=== PATIENT | male | born 1940 | race Caucasian/White ===

== ENCOUNTER 2018-05-30 10:53 | Inpatient (IN) | payer MEDICARE, OTHER ==
[~2018-05-30] VITALS: Ht 170.2 cm; Wt 82.0 kg
[2018-05-30] VITALS (13 sets, daily range): BP systolic 153–172; BP diastolic 56–105
[2018-05-30 11:34] LABS: CLARITY,URINE CLEAR (Clear); COLOR,URINE YELLOW (Yellow); GLUCOSE, URINE NEGATIVE (Neg); KETONES,URINE NEGATIVE (Neg); LEUKOCYTE ESTERASE ,URINE NEGATIVE (Neg); NITRITES, URINE NEGATIVE (Neg); OCCULT BLOOD,URINE LARGE (Neg); PROTEIN,URINE 100 mg/dl (Neg); UROBILINOGEN,URINE 0.2 E.U/dL (0.2-1.0)
[2018-05-30] MEDS ORDERED: morphine 4 MG/ML inj SYRINge IV ONE ×2 (11:35→13:05)
[2018-05-30] MEDS ORDERED: ondansetron/PF 4mg/2ml inj IV ONE (11:35)
[2018-05-30] MEDS ORDERED: normal saline 1000ml 1,000 ML IV ONE ×2 (11:35→19:39)
[2018-05-30 11:37] LABS: UA COLLECTION TYPE CLN CATCH MIDSTREAM
[2018-05-30 11:48] LABS: BACTERIA,URINE FEW /HPF (Neg); RBC,URINE 20-50 /HPF (0-2); SQUAMOUS EPITHELIAL CELL,UR NONE SEEN /LPF (FEW); WBC,URINE 0-4 /HPF (0-4)
[2018-05-30 11:49] LABS: HYALINE CASTS 0-3 /LPF (NEGATIVE); MUCUS STRANDS FEW /LPF (Neg)
[2018-05-30 11:58] LABS: PROTHROMBIN TIME 10.8 SECONDS (9.0-12.0)
[2018-05-30] MEDS ORDERED: ALBU8HFA PO (12:00)
[2018-05-30] MEDS ORDERED: DICY10CA88 PO (12:00)
[2018-05-30] MEDS ORDERED: HYDR-3686 PO (12:00)
[2018-05-30] MEDS ORDERED: FLUTICASONE PROPIONATE (12:00)
[2018-05-30] MEDS ORDERED: TRAZ-219 PO (12:00)
[2018-05-30] MEDS ORDERED: PRED10DR LEFTEYE (12:00)
[2018-05-30] MEDS ORDERED: LISI40TA4 PO (12:00)
[2018-05-30] MEDS ORDERED: MIRT30TA8 PO (12:00)
[2018-05-30] MEDS ORDERED: METOPROLOL PO (12:00)
[2018-05-30] MEDS ORDERED: TAMS0.4C32 PO (12:00)
[2018-05-30 12:05] LABS: ALANINE AMINOTRANSFERASE 22 U/L (12-78); ALBUMIN 4.2 G/DL (3.4-5.0); ALKALINE PHOSPHATASE 47 IU/L (46-116); ANION GAP 9 (8-16); ASPARTATE AMINO TRANSFERASE 18 U/L (10-37); BILIRUBIN,TOTAL 0.5 MG/DL (0.1-1.0); BLOOD UREA NITROGEN 11 MG/DL (7-18); BUN/CREATININE RATIO 6.2 (5.4-32.0); CALCIUM 9.6 MG/DL (8.5-10.1); CHLORIDE 103 MMOL/L (99-107); CREATININE 1.78 MG/DL (0.60-1.10); GLUCOSE 155 MG/DL (70-104); POTASSIUM 3.8 MMOL/L (3.5-5.1); SODIUM 139 MMOL/L (135-145); TOTAL CARBON DIOXIDE 27.2 MMOL/L (24-32); TOTAL PROTEIN 8.3 G/DL (6.4-8.2); eGFR 37 ML/MIN
[2018-05-30 12:14] LABS: HEMOGLOBIN 11.4 g/dl (14.0-17.9); MEAN CORPUSCULAR HEMOGLOBIN 30.1 PG (27.0-31.0); MEAN CORPUSCULAR HGB CONC 33.7 % (33.0-36.5); MEAN CORPUSCULAR VOLUME 89.4 FL (78-98); MEAN PLATELET VOLUME 11.5 FL (7.4-10.4); RED CELL DISTRIBUTION WIDTH 16.8 % (11.5-14.5); WHITE BLOOD COUNT 9.8 X10'3 (4.5-11.0)
[2018-05-30 12:19] LABS: AMYLASE 132 U/L (25-115); LIPASE 405 U/L (73-393); TROPONIN I < 0.04 NG/ML (0.0-0.05)
[2018-05-30 12:55] LABS: PLATELET COUNT 20 X10'3 (140-440)
[2018-05-30 13:02] LABS: TOTAL CELLS COUNTED 100
[2018-05-30 13:06] LABS: ANISOCYTOSIS 2+; PLATELET ESTIMATE DECREASED
[2018-05-30 13:08] LABS: LARGE PLATELETS FEW
[2018-05-30 13:11] LABS: POLYCHROMASIA FEW
[2018-05-30] MEDS ORDERED: iohexol 300 MG/1 ML 50ml polymer ONE (15:38)
[2018-05-30] MEDS ORDERED: potassium Cl 40MEQ/NS 500ml 500 ML IV PRN ×2 (15:40)
[2018-05-30] MEDS ORDERED: magnesium 4gm in 100ml NS 100 ML IV PRN (15:40)
[2018-05-30] MEDS ORDERED: magnesium Cl slow-release 64mg tablet PO PRN (15:40)
[2018-05-30] MEDS ORDERED: metoclopramide 5 mg/ml inj IV PRN (15:40)
[2018-05-30] MEDS ORDERED: magnesium 1gm/100ml D5W IVPB 100 ML IV PRN (15:40)
[2018-05-30] MEDS ORDERED: morphine 2 MG/ML inj. syringe IV PRN (15:40)
[2018-05-30] MEDS ORDERED: ondansetron/PF 4mg/2ml inj IV PRN ×2 (15:40→19:40)
[2018-05-30] MEDS ORDERED: potassium Cl 20 mEq SR tablet PO PRN ×2 (15:40)
[2018-05-30 17:06] LABS: BASOPHILS % (AUTO) 0.2 % (0-1); EOSINOPHILS # (AUTO) 0.1 X10'3 (0-0.9); EOSINOPHILS % (AUTO) 1.2 % (0-6); LYMPHOCYTES % (AUTO) 13.5 % (21-51); MEAN CORPUSCULAR HEMOGLOBIN 30.5 PG (27.0-31.0); MEAN CORPUSCULAR HGB CONC 33.9 % (33.0-36.5); MEAN CORPUSCULAR VOLUME 89.9 FL (78-98); MEAN PLATELET VOLUME 10.7 FL (7.4-10.4); MONOCYTES # (AUTO) 0.9 X10'3 (0-0.9); MONOCYTES % (AUTO) 12.1 % (2-12); NEUTROPHILS # (AUTO) 5.2 X10'3 (1.8-7.7); PRE OP HEMATOCRIT 30.2 % (42.0-52.0); RED BLOOD COUNT 3.36 X10'6 (4.70-6.10); RED CELL DISTRIBUTION WIDTH 17.1 % (11.5-14.5)
[2018-05-30 17:23] LABS: PRE OP PLATELET COUNT 17 X10'3 (140-440)
[2018-05-30 17:24] LABS: PRE OP HEMOGLOBIN 10.2 g/dL (14.0-17.9)
[2018-05-30] MEDS ORDERED: methylPREDNISolone sod succ 125mg/2ml vial IV ONE (18:30)
[2018-05-30] MEDS ORDERED: fentaNYL/PF 50MCG/1 ML 2ML syringe ONE (19:02)
[2018-05-30] MEDS ORDERED: propofol inj 20 ML IV ONE (19:03)
[2018-05-30] MEDS ORDERED: LIDOcaine 2% (20mg/ml) 5ml vial ONE (19:03)
[2018-05-30] MEDS ORDERED: sevoflurane 250ml liquid IH ONE (19:06)
[2018-05-30] MEDS ORDERED: succinylcholine 20mg/ml inj IV ONE (19:33)
[2018-05-30] MEDS ORDERED: ondansetron/PF 4mg/2ml inj ONE (19:33)
[2018-05-30] MEDS ORDERED: HYDROmorphone 1 mg/ml syringe IV PRN (19:40)
[2018-05-30] MEDS ORDERED: morphine 4 MG/ML inj SYRINge IV PRN (19:40)
[2018-05-31 00:34] VITALS: BP 154/70
[2018-05-31] MEDS: morphine 2 MG/ML inj. syringe IV PRN ×3 (01:54→13:23)
[2018-05-31 03:30] VITALS: BP 142/83
[2018-05-31] MEDS: sodium chloride 0.45% 1,000 ML IV SCH ×3 (03:48→23:51)
[2018-05-31 04:39] LABS: HEMATOCRIT 27.3 % (42.0-52.0); HEMOGLOBIN 9.1 g/dl (14.0-17.9); MEAN CORPUSCULAR HEMOGLOBIN 29.9 PG (27.0-31.0); MEAN CORPUSCULAR HGB CONC 33.4 % (33.0-36.5); MEAN CORPUSCULAR VOLUME 89.6 FL (78-98); MEAN PLATELET VOLUME 9.2 FL (7.4-10.4); RED BLOOD COUNT 3.05 X10'6 (4.70-6.10); RED CELL DISTRIBUTION WIDTH 17.5 % (11.5-14.5); WHITE BLOOD COUNT 9.4 X10'3 (4.5-11.0)
[2018-05-31 04:57] LABS: PLATELET COUNT 44 X10'3 (140-440)
[2018-05-31 05:04] LABS: ALBUMIN 3.2 G/DL (3.4-5.0); ANION GAP 8 (8-16); BLOOD UREA NITROGEN 9 MG/DL (7-18); BUN/CREATININE RATIO 4.9 (5.4-32.0); CALCIUM 8.5 MG/DL (8.5-10.1); CHLORIDE 107 MMOL/L (99-107); CREATININE 1.83 MG/DL (0.60-1.10); GLUCOSE 104 MG/DL (70-104); POTASSIUM 4.1 MMOL/L (3.5-5.1); SODIUM 140 MMOL/L (135-145); TOTAL CARBON DIOXIDE 25.1 MMOL/L (24-32); eGFR 36 ML/MIN
[2018-05-31 05:06] LABS: PLATELET ESTIMATE DECREASED; TOTAL CELLS COUNTED 100
[2018-05-31 05:07] LABS: ANISOCYTOSIS 1+; POLYCHROMASIA FEW
[2018-05-31 07:33] VITALS: BP 166/51
[2018-05-31] MEDS: K and/or MAG REPLACEMENT MC SCH (08:00)
[2018-05-31] MEDS ORDERED: albuterol 2.5 MG/3 ML nebule NEB PRN (10:35)
[2018-05-31] MEDS: metoprolol succinate 25mg (24-HOUR) SR. Tablet PO SCH (11:13)
[2018-05-31] MEDS: lisinopril 20mg tablet PO SCH (11:13)
[2018-05-31] MEDS: tamsulosin 0.4mg capsule PO SCH (11:13)
[2018-05-31] MEDS: budesonide 0.5mg/2ml UD nebule IH SCH ×2 (11:20→20:17)
[2018-05-31 11:33] VITALS: BP 165/68
[2018-05-31 14:49] LABS: LIPASE 154 U/L (73-393)
[2018-05-31] MEDS: predniSONE 20 mg tablet PO SCH (15:41)
[2018-05-31] MEDS: prednisoLONE acetate 1% ophth susp 5ml LEFTEYE SCH ×2 (16:27→23:50)
[2018-05-31] MEDS: traMADol 50MG tablet PO PRN (17:42)
[2018-05-31 18:00] VITALS: BP 158/70
[2018-05-31] MEDS ORDERED: opium/belladonna alkaloids No. 15A 30mg rectal suppository RC PRN (18:20)
[2018-05-31] MEDS: phenazopyridine 100mg tablet PO SCH (19:39)
[2018-05-31] MEDS: traZODone 50mg tablet PO SCH (20:42)
[2018-05-31] MEDS: mirtazapine 15mg tablet PO SCH (20:42)
[2018-06-01] VITALS: BP 162/89
[2018-06-01 05:15] LABS: ALBUMIN 3.5 G/DL (3.4-5.0); ANION GAP 9 (8-16); BLOOD UREA NITROGEN 15 MG/DL (7-18); BUN/CREATININE RATIO 10.2 (5.4-32.0); CALCIUM 8.5 MG/DL (8.5-10.1); CHLORIDE 106 MMOL/L (99-107); CREATININE 1.47 MG/DL (0.60-1.10); GLUCOSE 123 MG/DL (70-104); MAGNESIUM 1.9 MG/DL (1.5-2.4); POTASSIUM 4.1 MMOL/L (3.5-5.1); SODIUM 141 MMOL/L (135-145); TOTAL CARBON DIOXIDE 26.5 MMOL/L (24-32); eGFR 47 ML/MIN
[2018-06-01 05:50] LABS: BASOPHILS # (AUTO) 0.1 X10'3 (0-0.2); BASOPHILS % (AUTO) 1.3 % (0-1); EOSINOPHILS % (AUTO) 0.1 % (0-6); HEMATOCRIT 27.5 % (42.0-52.0); HEMOGLOBIN 9.6 g/dl (14.0-17.9); LYMPHOCYTES % (AUTO) 28.2 % (21-51); MEAN CORPUSCULAR HEMOGLOBIN 31.5 PG (27.0-31.0); MEAN CORPUSCULAR HGB CONC 34.9 % (33.0-36.5); MEAN CORPUSCULAR VOLUME 90.4 FL (78-98); MEAN PLATELET VOLUME 9.4 FL (7.4-10.4); MONOCYTES # (AUTO) 1.8 X10'3 (0-0.9); MONOCYTES % (AUTO) 24.7 % (2-12); NEUTROPHILS # (AUTO) 3.3 X10'3 (1.8-7.7); NEUTROPHILS % (AUTO) 45.7 % (42-75); RED BLOOD COUNT 3.05 X10'6 (4.70-6.10); RED CELL DISTRIBUTION WIDTH 15.8 % (11.5-14.5); WHITE BLOOD COUNT 7.2 X10'3 (4.5-11.0)
[2018-06-01 06:38] LABS: ANISOCYTOSIS 1+; LARGE PLATELETS FEW; PLATELET ESTIMATE DECREASED
[2018-06-01 06:39] LABS: PLATELET COUNT 36 X10'3 (140-440)
[2018-06-01 07:00] VITALS: BP 181/84
[2018-06-01] MEDS: traMADol 50MG tablet PO PRN ×2 (07:16→17:31)
[2018-06-01] MEDS: predniSONE 20 mg tablet PO SCH (07:16)
[2018-06-01] MEDS: tamsulosin 0.4mg capsule PO SCH (07:16)
[2018-06-01] MEDS: metoprolol succinate 25mg (24-HOUR) SR. Tablet PO SCH (07:17)
[2018-06-01] MEDS: lisinopril 20mg tablet PO SCH (07:17)
[2018-06-01] MEDS: phenazopyridine 100mg tablet PO SCH ×3 (07:17→18:14)
[2018-06-01] MEDS: prednisoLONE acetate 1% ophth susp 5ml LEFTEYE SCH ×3 (07:17→23:33)
[2018-06-01] MEDS: budesonide 0.5mg/2ml UD nebule IH SCH (07:29)
[2018-06-01] MEDS ORDERED: phenazopyridine 100mg tablet PO SCH (08:00)
[2018-06-01] MEDS: K and/or MAG REPLACEMENT MC SCH (08:00)
[2018-06-01] MEDS: sodium chloride 0.45% 1,000 ML IV SCH ×2 (09:28→17:29)
[2018-06-01 11:00] VITALS: BP 174/77
[2018-06-01] MEDS: morphine 2 MG/ML inj. syringe IV PRN (12:26)
[2018-06-01] MEDS: pantoprazole 40mg Tablet.DR PO SCH (13:59)
[2018-06-01 17:19] LABS: ALANINE AMINOTRANSFERASE 16 U/L (12-78); ALBUMIN 3.4 G/DL (3.4-5.0); ALBUMIN/GLOBULIN RATIO 0.9 (1.1-1.5); ALKALINE PHOSPHATASE 43 IU/L (46-116); ASPARTATE AMINO TRANSFERASE 29 U/L (10-37); BILIRUBIN,DIRECT 0.1 MG/DL (0-0.3); BILIRUBIN,TOTAL 0.5 MG/DL (0.1-1.0); LIPASE 289 U/L (73-393)
[2018-06-01 18:00] VITALS: BP 158/53
[2018-06-01] MEDS: traZODone 50mg tablet PO SCH (20:21)
[2018-06-01] MEDS: docusate sod 100mg capsule PO SCH (20:21)
[2018-06-01] MEDS: mirtazapine 15mg tablet PO SCH (20:26)
[2018-06-01] MEDS: BUDESONIDE 0.25 MG/2 ML AMPUL.NEB IH SCH (20:43)
[2018-06-02] VITALS: BP 154/58
[2018-06-02] MEDS: sodium chloride 0.45% 1,000 ML IV SCH ×2 (03:20→12:58)
[2018-06-02 05:28] LABS: ANION GAP 6 (8-16); BLOOD UREA NITROGEN 24 MG/DL (7-18); BUN/CREATININE RATIO 18.2 (5.4-32.0); CALCIUM 8.1 MG/DL (8.5-10.1); CHLORIDE 106 MMOL/L (99-107); CREATININE 1.32 MG/DL (0.60-1.10); GLUCOSE 97 MG/DL (70-104); LIPASE 115 U/L (73-393); MAGNESIUM 1.9 MG/DL (1.5-2.4); SODIUM 139 MMOL/L (135-145); TOTAL CARBON DIOXIDE 26.6 MMOL/L (24-32); eGFR 53 ML/MIN
[2018-06-02 05:29] LABS: HEMATOCRIT 26.8 % (42.0-52.0); HEMOGLOBIN 9.3 g/dl (14.0-17.9); MEAN CORPUSCULAR HEMOGLOBIN 30.8 PG (27.0-31.0); MEAN CORPUSCULAR HGB CONC 34.5 % (33.0-36.5); MEAN CORPUSCULAR VOLUME 89.1 FL (78-98); MEAN PLATELET VOLUME 9.8 FL (7.4-10.4); RED BLOOD COUNT 3.01 X10'6 (4.70-6.10); RED CELL DISTRIBUTION WIDTH 17.3 % (11.5-14.5); WHITE BLOOD COUNT 8.9 X10'3 (4.5-11.0)
[2018-06-02 05:33] LABS: PLATELET COUNT 33 X10'3 (140-440)
[2018-06-02 07:00] VITALS: BP 162/81
[2018-06-02] MEDS: prednisoLONE acetate 1% ophth susp 5ml LEFTEYE SCH ×2 (07:28→16:31)
[2018-06-02] MEDS: metoprolol succinate 25mg (24-HOUR) SR. Tablet PO SCH (07:28)
[2018-06-02] MEDS: phenazopyridine 100mg tablet PO SCH ×2 (07:29→12:46)
[2018-06-02] MEDS: docusate sod 100mg capsule PO SCH (07:29)
[2018-06-02] MEDS: pantoprazole 40mg Tablet.DR PO SCH (07:29)
[2018-06-02] MEDS: tamsulosin 0.4mg capsule PO SCH (07:29)
[2018-06-02] MEDS: lisinopril 20mg tablet PO SCH (07:29)
[2018-06-02] MEDS: predniSONE 20 mg tablet PO SCH (07:29)
[2018-06-02] MEDS ORDERED: pantoprazole 40mg Tablet.DR PO SCH (07:30)
[2018-06-02] MEDS: BUDESONIDE 0.25 MG/2 ML AMPUL.NEB IH SCH (07:56)
[2018-06-02] MEDS: K and/or MAG REPLACEMENT MC SCH (08:00)
[2018-06-02 08:17] LABS: PLATELET ESTIMATE DECREASED; TOTAL CELLS COUNTED 100
[2018-06-02 11:57] VITALS: BP 197/69
[2018-06-02] MEDS ORDERED: metoprolol succinate 25mg (24-HOUR) SR. Tablet PO SCH (13:50)
[2018-06-02] MEDS ORDERED: metoprolol succinate 25mg (24-HOUR) SR. Tablet PO ONE (14:00)
[2018-06-02] MEDS ORDERED: TRAM50TA2 PO ×3 (15:03→15:14)
[2018-06-02] MEDS ORDERED: METO-395 PO (15:04)
[2018-06-03] MEDS ORDERED: metoprolol succinate 25mg (24-HOUR) SR. Tablet PO SCH (08:00)
== END 2018-06-02 18:21 | disposition home or self-care (01) | DRG 694 ==
LOC: ER 10:55 → ED HOLD 11:53 → SUR 3N 19:26 → PAS IN 19:41 → SUR 3N 19:58
PROVIDERS: ADMIT Internal Medicine; ATTEND Internal Medicine
PROC: 0T778DZ Dilation of Left Ureter with Intraluminal Device, Via Natural or Artificial Opening Endoscopic (ICD-10-PCS; 2018-05-30)
PROC: 30233R1 Transfusion of Nonautologous Platelets into Peripheral Vein, Percutaneous Approach (ICD-10-PCS; 2018-05-30)
PROC: BT1F1ZZ Fluoroscopy of Left Kidney, Ureter and Bladder using Low Osmolar Contrast (ICD-10-PCS; principal; 2018-05-30 19:06)
DX: N13.2 Hydronephrosis with renal and ureteral calculous obstruction (principal); K80.20 Calculus of gallbladder without cholecystitis without obstruction; F31.9 Bipolar disorder, unspecified; F43.10 Post-traumatic stress disorder, unspecified; H54.8 Legal blindness, as defined in USA; D69.6 Thrombocytopenia, unspecified; N17.9 Acute kidney failure, unspecified; I12.9 Hypertensive chronic kidney disease with stage 1 through stage 4 chronic kidney disease, or unspecified chronic kidney disease; N18.9 Chronic kidney disease, unspecified; D64.9 Anemia, unspecified; J45.909 Unspecified asthma, uncomplicated; R31.9 Hematuria, unspecified; F12.90 Cannabis use, unspecified, uncomplicated; K59.00 Constipation, unspecified; N40.0 Benign prostatic hyperplasia without lower urinary tract symptoms; Z85.6 Personal history of leukemia; Z88.5 Allergy status to narcotic agent; Z79.899 Other long term (current) drug therapy
CPT/HCPCS: 36415; 71045; 74176; 76000; 76700; 80048; 80053; 80076; 81001; 82150; 83605; 83690; 83735; 84484; 85025; 85610; 86022; 86885; 86900; 86901; 87040; 87070; 93005; 94640; 94760; 96361; 96374; 96375; 99285; A4315; A4402; C1758; C1769; C2617; J0330; J2001; J2270; J2405; J2704; J3010; J7030; J7512; J7626; P9035; Q9967

== ENCOUNTER 2018-06-05 06:50 | Emergency (ER) | payer MEDICARE, OTHER ==
[~2018-06-05] VITALS: Ht 584.7 cm; Wt 80.8 kg
[~2018-06-05 06:50] MED LIST: ALBU8HFA PO; DICY10CA88 PO; FLUTICASONE PROPIONATE; HYDR-3686 PO; LISI40TA4 PO; METO-395 PO; MIRT30TA8 PO; PRED10DR LEFTEYE; TAMS0.4C32 PO; TRAM50TA2 PO; TRAZ-219 PO
[2018-06-05 07:22] LABS: CLARITY,URINE CLOUDY (Clear); COLOR,URINE RED (Yellow); UA COLLECTION TYPE CLN CATCH MIDSTREAM
[2018-06-05 07:28] LABS: BACTERIA,URINE FEW /HPF (Neg); MUCUS STRANDS NONE SEEN /LPF (Neg); RBC,URINE TNTC /HPF (0-2); SQUAMOUS EPITHELIAL CELL,UR NONE SEEN /LPF (FEW)
[2018-06-05 07:39] LABS: HEMOGLOBIN 10.8 g/dl (14.0-17.9); MEAN CORPUSCULAR HGB CONC 34.8 % (33.0-36.5); MEAN CORPUSCULAR VOLUME 89.1 FL (78-98); MEAN PLATELET VOLUME 10.4 FL (7.4-10.4); RED BLOOD COUNT 3.48 X10'6 (4.70-6.10); RED CELL DISTRIBUTION WIDTH 17.1 % (11.5-14.5); WHITE BLOOD COUNT 7.8 X10'3 (4.5-11.0)
[2018-06-05 07:54] LABS: ALANINE AMINOTRANSFERASE 31 U/L (12-78); ALBUMIN 4.1 G/DL (3.4-5.0); ALBUMIN/GLOBULIN RATIO 1.1 (1.1-1.5); ALKALINE PHOSPHATASE 44 IU/L (46-116); ANION GAP 11 (8-16); ASPARTATE AMINO TRANSFERASE 27 U/L (10-37); BILIRUBIN,TOTAL 0.5 MG/DL (0.1-1.0); BLOOD UREA NITROGEN 22 MG/DL (7-18); BUN/CREATININE RATIO 16.2 (5.4-32.0); CALCIUM 8.5 MG/DL (8.5-10.1); CHLORIDE 105 MMOL/L (99-107); CREATININE 1.36 MG/DL (0.60-1.10); GLUCOSE 112 MG/DL (70-104); LYMPHOCYTES % (MANUAL) 32 % (21-51); MONOCYTES % (MANUAL) 18 % (2-12); NEUTROPHILS % (MANUAL) 50 % (42-75); PLATELET COUNT 24 X10'3 (140-440); POTASSIUM 3.6 MMOL/L (3.5-5.1); SODIUM 142 MMOL/L (135-145); TOTAL CARBON DIOXIDE 26.5 MMOL/L (24-32); TOTAL CELLS COUNTED 100; TOTAL PROTEIN 7.8 G/DL (6.4-8.2); eGFR 51 ML/MIN
[2018-06-05 07:55] LABS: ANISOCYTOSIS 1+; LARGE PLATELETS MODERATE; PLATELET ESTIMATE DECREASED
[2018-06-05 08:06] LABS: PROTHROMBIN TIME 10.7 SECONDS (9.0-12.0)
[2018-06-05 09:42] VITALS: BP 194/77
== END 2018-06-05 10:04 | disposition short-term general hospital (02) ==
LOC: ER 06:50
DX: R31.9 Hematuria, unspecified (principal); D69.6 Thrombocytopenia, unspecified; I10 Essential (primary) hypertension; J45.909 Unspecified asthma, uncomplicated; F12.90 Cannabis use, unspecified, uncomplicated; Z79.899 Other long term (current) drug therapy; Z88.5 Allergy status to narcotic agent; Z91.011 Allergy to milk products
CPT/HCPCS: 36415; 80053; 81001; 85025; 85610; 86885; 86900; 86901; 87088; 99284